=== PATIENT | male | born 1980 ===

== ENCOUNTER 2023-12-22 12:25 | Day surgery (SDC) | payer OTHER ==
[~2023-12-22 12:25] MED LIST: Sodium Chloride 0.9% 10 ML Syringe FLUSH PRN; Sodium Chloride 0.9% 10 ML Syringe FLUSH SCH
[2023-12-22] MEDS ORDERED: HYDROmorphone 0.5 MG/0.5 ML Syringe IVPUSH PRN (12:51)
[2023-12-22] MEDS ORDERED: Ondansetron 4 MG/2 ML SDV IVPUSH PRN (12:51)
[2023-12-22] MEDS ORDERED: fentaNYL 100 MCG/2 ML SDV IVPUSH PRN (12:51)
[2023-12-22] MEDS: Lactated Ringers 1,000 ML IV SCH (13:20)
[2023-12-22] MEDS ORDERED: fentaNYL 100 MCG/2 ML SDV ONE (15:41)
[2023-12-22] MEDS ORDERED: Propofol 200 MG/20 ML SDV ONE ×3 (15:41→16:29)
[2023-12-22] MEDS ORDERED: Midazolam 1 MG/ML 2 ML SDV ONE (15:41)
[2023-12-22] MEDS ORDERED: ceFAZolin 2 GM Vial ONE (15:43)
[2023-12-22] MEDS: Lidocaine 1% 30 ML SDV ONE (16:04)
[2023-12-22] MEDS: Bupivacaine 0.5% 30 ML SDV ONE (16:04)
[2023-12-22] MEDS: EPINEPHrine 1 MG/ML SDV ONE (16:04)
[2023-12-22] MEDS ORDERED: Lactated Ringers 1,000 ML ONE (16:19)
[2023-12-22] MEDS ORDERED: Ketorolac 30 MG/ML SDV ONE (17:01)
== END 2023-12-22 18:40 | disposition home or self-care (01) ==
LOC: JD.SDS 12:25
PROVIDERS: ATTEND Student in an Organized Health Care Education/Training Program
DX: L72.0 Epidermal cyst (principal); I10 Essential (primary) hypertension; E78.5 Hyperlipidemia, unspecified; F41.9 Anxiety disorder, unspecified; F32.A Depression, unspecified; G47.00 Insomnia, unspecified; Z88.0 Allergy status to penicillin
CPT/HCPCS: 11403; J0171; J0665; J0690; J1885; J2250; J2704; J3010; J7120; 00300; J3490